=== PATIENT | female | born 1985 | race Two or more races ===

== ENCOUNTER 2018-07-02 10:30 | Observation (INO) | payer MEDICAID ==
[~2018-07-02 10:30] MED LIST: FERR-7 PO; GLYB2.5T8 PO; PREN-153 PO
== END 2018-07-02 12:15 | disposition home or self-care (01) | DRG 566 ==
LOC: LDRP 10:30
PROVIDERS: ADMIT Obstetrics & Gynecology; ATTEND Obstetrics & Gynecology
DX: O24.419 Gestational diabetes mellitus in pregnancy, unspecified control (principal); O26.893 Other specified pregnancy related conditions, third trimester; N89.8 Other specified noninflammatory disorders of vagina; Z3A.37 37 weeks gestation of pregnancy
CPT/HCPCS: 59025; 76818; 81002; 82962; G0378

== ENCOUNTER 2018-07-05 14:56 | Observation (INO) | payer MEDICAID | END 2018-07-05 16:20 | disposition home or self-care (01) | DRG 566 | LOC: LDRP 14:56 | PROVIDERS: ADMIT Obstetrics & Gynecology; ATTEND Obstetrics & Gynecology | DX: O24.419 Gestational diabetes mellitus in pregnancy, unspecified control (principal); Z3A.37 37 weeks gestation of pregnancy | CPT/HCPCS: 59025; 76818; 81002; G0378 ==

== ENCOUNTER 2018-07-07 17:55 | Inpatient (IN) | payer MEDICAID ==
[~2018-07-07] VITALS: Ht 157.5 cm; Wt 87.1 kg
[2018-07-07] MEDS ORDERED: LACTATED RINGER'S 1,000 ML IV SCH (19:57)
[2018-07-07 20:45] LABS: Basophils # (auto) 0 uL; Basophils % (auto) 0.4 % (0.0-2.0); Eosinophils # (auto) 0.1 uL; Eosinophils % (auto) 0.9 % (0.0-7.0); Hematocrit 31.9 % (36.0-46.0); Hemoglobin 10.8 g/dL (12.2-16.2); Lymphocytes # (auto) 1.2 uL; Mean Corpuscular Hemoglobin 29.9 pg (28.0-32.0); Mean Corpuscular Hgb Conc. 33.8 g/dL (32.0-36.0); Mean Corpuscular Volume 88.4 fL (80.0-100.0); Monocytes # (auto) 0.5 uL; Monocytes % (auto) 6.3 % (0.0-12.0); Neutrophils # (auto) 5.6 uL; Neutrophils % (auto) 76.4 % (37.0-80.0); Platelet Count (auto) 196 10^3/uL (140-450); Red Cell Distribution Width 16.5 % (11.8-14.3); White Blood Cell 7.3 10^3/uL (4.4-10.8)
[2018-07-07 20:51] LABS: Urine Bacteria NONE SEEN /hpf (None Seen); Urine Blood Negative /uL (Negative); Urine Mucus FEW (None Seen); Urine Specific Gravity 1.024 (1.001-1.035); Urine WBC 123 /hpf (0 - 5)
[2018-07-07 20:53] LABS: INR 0.86 (0.9-1.15); Partial Thromboplastin Time 27.7 sec (23.78-33.04); Prothrombin Time 9.3 sec (9.27-12.13)
[2018-07-07 20:54] LABS: Albumin 2.4 g/dL (3.4-5.0); BUN/Creatinine Ratio 16.4; Calcium 8.7 mg/dL (8.5-10.1)
[2018-07-07 20:56] LABS: Bilirubin, Total 0.3 mg/dL (0.2-1.0); Total Protein 6.7 g/dL (6.4-8.2)
[2018-07-08] MEDS ORDERED: LACT. RINGERS/OXYTOCIN 20UNITS 1,000 ML IV SCH (07:33)
[2018-07-08] MEDS ORDERED: LACT. RINGERS/OXYTOCIN 20UNITS 1,000 ML IV ONE (07:45)
[2018-07-08] MEDS ORDERED: PHISODERM TOP SOLN 240ML BTL TOP PRN (07:45)
[2018-07-08] MEDS ORDERED: LIDOCAINE 2% (LOCAL ANESTH.) PF 5ml SDV ID ONE (07:45)
[2018-07-08] MEDS ORDERED: fentaNYL W ROPIVACAINE 150 ML EPI SCH (07:45)
[2018-07-08] MEDS ORDERED: NALBUPHINE HCL 10 MG/1ml INJECTION IV PRN (07:45)
[2018-07-08] MEDS ORDERED: fentaNYL CITRATE 100 MCG/2 ML VL IV ONE (07:45)
[2018-07-08] MEDS ORDERED: NALOXONE HCL 0.4 MG/ML VIAL IV ONE (07:45)
[2018-07-08] MEDS ORDERED: DERMOPLAST 60ML BOTTLE TOP PRN (07:45)
[2018-07-08] MEDS ORDERED: LIDOCAINE 2% (LOCAL ANESTH.) PF 5ml SDV ONE (07:45)
[2018-07-08] MEDS ORDERED: LIDOCAINE HCL 2 %PF INJ 10ML AMP IJ ONE (07:45)
[2018-07-08] MEDS ORDERED: WITCH HAZEL-GLYCERIN PAD TOP PRN (07:45)
[2018-07-08] MEDS ORDERED: ePHEDrine SULFATE 50 MG/ML AMP IV ONE (07:45)
[2018-07-08] MEDS ORDERED: fentaNYL CITRATE 100 MCG/2 ML VL ONE (07:47)
[2018-07-08] MEDS ORDERED: fentaNYL W ROPIVACAINE 150 ML EPI ONE (07:47)
[2018-07-08] MEDS ORDERED: ePHEDrine SULFATE 50 MG/ML AMP ONE (07:47)
[2018-07-08] MEDS ORDERED: IBUPROFEN 600 MG TAB PO PRN (12:15)
[2018-07-08 15:20] VITALS: BP 105/54
[2018-07-08 19:30] VITALS: BP 107/63
[2018-07-08 23:21] VITALS: BP 117/65
[2018-07-09 04:00] VITALS: BP 111/71
[2018-07-09 04:06] LABS: RPR Non Reactive (Non Reactive)
[2018-07-09 06:38] VITALS: BP 110/70
[2018-07-09 11:00] VITALS: BP 110/67
== END 2018-07-09 13:15 | disposition home or self-care (01) | DRG 560 ==
LOC: LDRP 17:55
PROVIDERS: ADMIT Specialist; ATTEND Specialist
PROC: 10E0XZZ Delivery of Products of Conception, External Approach (ICD-10-PCS; principal; 2018-07-08)
PROC: 3E0R3BZ Introduction of Anesthetic Agent into Spinal Canal, Percutaneous Approach (ICD-10-PCS; 2018-07-08)
PROC: 00HU33Z Insertion of Infusion Device into Spinal Canal, Percutaneous Approach (ICD-10-PCS; 2018-07-08)
DX: O24.429 Gestational diabetes mellitus in childbirth, unspecified control (principal); O45.93 Premature separation of placenta, unspecified, third trimester; O41.03X0 Oligohydramnios, third trimester, not applicable or unspecified; O69.81X0 Labor and delivery complicated by cord around neck, without compression, not applicable or unspecified; O42.92 Full-term premature rupture of membranes, unspecified as to length of time between rupture and onset of labor; Z37.0 Single live birth; Z3A.38 38 weeks gestation of pregnancy
CPT/HCPCS: 36415; 59409; 80053; 81001; 85025; 85610; 85730; 86592; 86850; 86900; 86901; A6257; J2001; J2590; J3010

== ENCOUNTER 2018-10-14 09:17 | Day surgery (SDC) | payer MEDICAID ==
[~2018-10-14] VITALS: Ht 157.5 cm; Wt 81.6 kg
[~2018-10-14 09:17] MED LIST changes: -FERR-7 PO; -GLYB2.5T8 PO
[2018-10-14] MEDS ORDERED: LABETALOL HCL 5 MG/ML 4ML SYRINGE IV PRN (11:45)
[2018-10-14] MEDS ORDERED: HYDROmorphone HCL 2 MG/ML VL IV PRN (11:45)
[2018-10-14] MEDS ORDERED: ONDANSETRON HCL 4 MG/2 ML VIAL IV ONE (11:45)
[2018-10-14] MEDS ORDERED: ePHEDrine SULFATE 50 MG/ML AMP IV PRN (11:45)
[2018-10-14] MEDS ORDERED: KETOROLAC TROMETH 30 MG/ML 1ML VIAL IV ONE (11:45)
[2018-10-14] MEDS ORDERED: MIDAZOLAM HCL 1MG/1ML-2 ML VIAL IV PRN (11:45)
[2018-10-14] MEDS ORDERED: MORPHINE SULFATE 4 MG/ML SYR/VIAL IV PRN (11:45)
[2018-10-14] MEDS ORDERED: MORPHINE SULFATE 4 MG/ML SYR/VIAL IV ONE (12:00)
[2018-10-14] MEDS ORDERED: PHENYLEPHRINE HCL 10 MG/ML VL IV ONE (12:15)
[2018-10-14] MEDS ORDERED: ceFAZolin 1GM/50ML 50 ML IV ONE (12:22)
[2018-10-14] MEDS ORDERED: PROPOFOL 10 MG/ML 20 ML IV ONE (12:23)
[2018-10-14] MEDS ORDERED: MIDAZOLAM HCL 1MG/1ML-2 ML VIAL ONE (12:23)
[2018-10-14] MEDS ORDERED: MEPERIDINE HCL (50 MG/ML) 1 ML VIAL ONE (12:23)
[2018-10-14] MEDS ORDERED: DEXAMETHASONE SOD PHOS 10MG/1ML VIAL INJ ONE (12:23)
[2018-10-14] MEDS ORDERED: fentaNYL CITRATE 100 MCG/2 ML VL ONE (12:23)
[2018-10-14] MEDS ORDERED: ROCURONIUM 10MG/ML 10ML VIAL IV ONE (12:31)
[2018-10-14] MEDS ORDERED: KETOROLAC TROMETH 30 MG/ML 1ML VIAL ONE (12:46)
[2018-10-14] MEDS ORDERED: NEOSTIGMINE 1 MG/ML INJ (10mg/10ML VIAL) ONE (13:07)
[2018-10-14] MEDS ORDERED: GLYCOPYRROLATE 0.2 MG/ML 1ML VIAL ONE (13:07)
[2018-10-14] MEDS ORDERED: LACTATED RINGER'S 1,000 ML IV SCH (13:26)
[2018-10-14] MEDS ORDERED: ONDANSETRON HCL 4 MG/2 ML VIAL IV PRN (13:30)
[2018-10-14 14:55] VITALS: BP 121/79
== END 2018-10-14 14:55 | disposition home or self-care (01) ==
LOC: SUR 09:17
PROVIDERS: ATTEND Specialist
DX: Z30.2 Encounter for sterilization (principal); Z64.1 Problems related to multiparity; O24.429 Gestational diabetes mellitus in childbirth, unspecified control; E66.9 Obesity, unspecified; D64.9 Anemia, unspecified; Z37.9 Outcome of delivery, unspecified; Z68.32 Body mass index [BMI] 32.0-32.9, adult; Z79.899 Other long term (current) drug therapy
CPT/HCPCS: 58671; J1170; J2175; J2370; J3010; J0690; J1100; J1885; J2250; J2704